=== PATIENT | female | born 1960 | race Hispanic/Latino ===

== ENCOUNTER 2017-09-27 07:31 | Inpatient (IN) | payer OTHER ==
[2017-09-27 07:34] VITALS: BMI 36.5
[2017-09-27] MEDS ORDERED: Lidocaine 5% Patch TD STA (07:50)
[2017-09-27] MEDS ORDERED: Morphine 5 MG/ML SYRINGE IVP STA (07:53)
[2017-09-27] MEDS ORDERED: HYDROmorphone 1 mg/ml ISec IVP STA ×2 (07:54→11:28)
--- NOTE | 2017-09-27 08:09 | ED PDOC ---
Arrival/HPI - General Chief Complaint: Back Pain Time Seen by Provider: 09/27/17 07:38 Historian: Family - History of Present Illness Narrative History of Present Illness (Text): 09/27/17 08:00 56 year old female, whose past medical history includes hypertension, hyperlipidemia, and kidney transplant, who presents to the emergency department complaining of lower back pain, mainly on the left side, due to her sciatica. Patient reports she came from a cruise and the pain began 1 day ago and got worse. Patient's family states 2 hours ago patient became nauseous and vomited. She also notes having frequency. Patient denies shortness of breath, fever, diarrhea, dysuria, hematuria, abdominal pain, or other complaints. No trauma. PMD: None Time/Duration: 24 hours Symptom Onset: Sudden Symptom Course: Unchanged, Worsening Past Medical History - Provider Review Nursing Documentation Reviewed: Yes - Travel History If Yes, travel location?: [place] - Cardiac Hx Cardiac Disorders: Yes Other/Comment: as per pt cardial infusion 3 years ago - Renal Hx Renal Disorder: Yes Other/Comment: kidney tranplant - Endocrine/Metabolic Hx Endocrine Disorders: No - Musculoskeletal/Rheumatological Hx Musculoskeletal Disorders: Yes Hx Back Pain: Yes - Gastrointestinal Hx Gastrointestinal Disorders: Yes Hx Gall Bladder Disease: Yes - Psychiatric Hx Substance Use: No - Surgical History Hx Kidney Transplant: Yes - Anesthesia Hx Anesthesia: Yes Hx Anesthesia Reactions: No Hx Malignant Hyperthermia: No Family/Social History - Physician Review Nursing Documentation Reviewed: Yes Family/Social History: Unknown Family HX Smoking Status: Never Smoked Hx Alcohol Use: Yes Frequency of alcohol use: Socially Hx Substance Use: No Allergies/Home Meds Allergies/Adverse Reactions: Allergies cephalexin Allergy (Severe, Verified 09/27/17 07:46) ITCHING ciprofloxacin [From Cipro] Allergy (Severe, Verified 09/27/17 07:45) RASH Home Medications: Home Meds Medication Instructions Recorded Confirmed Aspirin [Ecotrin] 81 mg PO DAILY 09/27/17 09/27/17 Atorvastatin [Lipitor] 20 mg PO DAILY 09/27/17 09/27/17 Calcitriol [Calcitriol] 0.25 mcg PO DAILY 09/27/17 09/27/17 FLUoxetine [Prozac] 20 mg PO DAILY 09/27/17 09/27/17 Magnesium Oxide [Mag-Ox] 400 mg PO BID 09/27/17 09/27/17 Mycophenolate Mofetil 250 mg PO BID 09/27/17 09/27/17 [Mycophenolate Mofetil] Prednisone [Jose Ramon] 5 mg PO DAILY 09/27/17 09/27/17 Sodium Bicarbonate Tab [Sodium 650 mg PO BID 09/27/17 09/27/17 Bicarbonate Tab] Tacrolimus [Prograf Cap] 1 mg PO BID 09/27/17 09/27/17 Temazepam [Restoril] 15 mg PO PRN PRN 09/27/17 09/27/17 predniSONE [predniSONE] 2.5 mg PO DAILY 09/27/17 09/27/17 Review of Systems - Review of Systems Constitutional: absent: Fevers ENT: absent: Sinus Congestion Respiratory: absent: SOB Cardiovascular: absent: Chest Pain Gastrointestinal: Nausea, Vomiting. absent: Abdominal Pain, Diarrhea Genitourinary Female: Frequency. absent: Dysuria, Hematuria Musculoskeletal: Back Pain (left lower back pain) Skin: absent: Rash Neurological: absent: Headache Endocrine: absent: Diaphoresis Physical Exam Vital Signs Reviewed: Yes Vital Signs Temp Pulse Resp BP Pulse Ox 09/27/17 12:16 98 F 79 19 111/66 95 09/27/17 10:01 98 F 85 18 111/65 98 09/27/17 07:59 98.3 F 84 18 133/71 98 Temperature: Afebrile Blood Pressure: Normal Pulse: Regular Respiratory Rate: Normal Appearance: Positive for: Well-Appearing, Non-Toxic Pain Distress: Mild Mental Status: Positive for: Alert and Oriented X 3 - Systems Exam Head: Present: Atraumatic, Normocephalic Extroacular Muscles: Present: EOMI Conjunctiva: Present: Normal Mouth: Present: Moist Mucous Membranes Respiratory/Chest: Present: Clear to Auscultation, Good Air Exchange. No: Respiratory Distress, Accessory Muscle Use, Wheezes, Rales, Retracting, Rhonchi Cardiovascular: Present: Regular Rate and Rhythm, Normal S1, S2. No: Murmurs Abdomen: Present: Normal Bowel Sounds. No: Tenderness, Distention, Peritoneal Signs, Rebound, Guarding Back: Present: Paraspinal Tenderness (left lower back lumbar tenderness), Pain with Leg Raise. No: CVA Tenderness Lower Extremity: Present: Normal Inspection, NORMAL PULSES, Normal ROM, Neurovascularly Intact, Capillary Refill < 2 s. No: Edema, Tenderness, Swelling , Erythema, Deformity Neurological: Present: GCS=15, CN II-XII Intact, Speech Normal Skin: Present: Warm, Dry, Normal Color. No: Rashes Psychiatric: Present: Alert, Oriented x 3, Normal Insight, Normal Concentration Medical Decision Making ED Course and Treatment: 09/27/17 Impression: 56 year old female with left lower back lumbar tenderness and pain with leg raise Differential Diagnosis included but are not limited to: Sciatica Plan: -- Labs -- Tylenol, Dilaudid, and Lidoderm -- Reassess and disposition -- Urinalysis Progress Notes: 09/27/17 09:48 Patient resting comfortably and states the pain has improved. Dexamethasone given for extra pain control. In the past she's received a medrol dose pack which has helped her. Patient creatinine elevated at 2.2 which she states is her baseline and even better then her typical creatinine. 09/27/17 12:48 I attempted to have patient up and walk. She initially could not sit up and after reevaluation she attempted to sit down and stand up. She was able to stand up but she fell back in the bed in pain. Considering she's had several treatments with pain medication and her pain persists she will be admitted for Intractable back pain. Clinically there is no evidence of cord compression. She has full strength, sensation intact. She has no incontinences. No numbness or weakness. - Lab Interpretations Lab Results: 09/27/17 08:00 09/27/17 08:00 Lab Results 09/27/17 08:00: Sodium 139, Potassium 4.0, Chloride 105, Carbon Dioxide 22, Anion Gap 16, BUN 66 H, Creatinine 2.2 H, Est GFR ( Amer) 28, Est GFR ( Non-Af Amer) 23, Random Glucose 153 H, Calcium 11.1 H 09/27/17 08:00: Urine Color Yellow, Urine Appearance Clear, Urine pH 6.0, Ur Specific [place] 1.020, Urine Protein Negative, Urine Glucose (UA) Negative, Urine Ketones Negative, Urine Blood Negative, Urine Nitrate Negative, Urine Bilirubin Negative, Urine Urobilinogen 0.2, Ur Leukocyte Esterase Trace H, Urine RBC Negative, Urine WBC 1 - 3, Ur Epithelial Cells 1 - 3, Urine Bacteria Few 09/27/17 08:00: WBC 10.2, RBC 3.02 L, Hgb 9.4 L, Hct 28.5 L, MCV 94.4, MCH 31.1 , MCHC 33.0, RDW 14.6 H, Plt Count 180, MPV 9.5, Gran % 82.9 H, Lymph % (Auto) 8.1 L, Moffat % (Auto) 7.9 H, Eos % (Auto) 1.0 L, Baso % (Auto) 0.1, Gran # 8.48 H , Lymph # (Auto) 0.8 L, Moffat # (Auto) 0.8 H, Eos # (Auto) 0.1, Baso # (Auto) 0.01 I have reviewed the lab results: Yes - Medication Orders Current Medication Orders: Aspirin (Ecotrin) 81 mg PO DAILY RADHA Atorvastatin Calcium (Lipitor) 20 mg PO DAILY RADHA Calcitriol (Rocaltrol) 0.25 mcg PO DAILY RADHA Fluoxetine HCl (Prozac) 20 mg PO DAILY RADHA Hydromorphone HCl (Dilaudid) 2 mg IVP Q3H PRN PRN Reason: Pain, moderate (4-7) Magnesium Oxide (Mag-Ox) 400 mg PO BID RADHA Mycophenolate Mofetil (Cellcept Cap) 250 mg PO BID RADHA Prednisone (Prednisone Tab) 5 mg PO DAILY RADHA Prednisone (Prednisone Tab) 2.5 mg PO DAILY RADHA Sodium Bicarbonate (Sodium Bicarbonate Tab) 650 mg PO BID RADHA Tacrolimus (Prograf Cap) 1 mg PO BID RADHA Zolpidem Tartrate (Ambien) 5 mg PO HS PRN PRN Reason: Insomnia Discontinued Medications Acetaminophen (Tylenol 325mg Tab) 975 mg PO STAT STA Stop: 09/27/17 07:51 Last Admin: 09/27/17 08:05 Dose: 975 mg MAR Pain/Vitals Document 09/27/17 08:05 VINCE (Rec: 09/27/17 08:05 VINCE [id number]) Pain Reassessment Is This A Pain ReAssessment? No Sleep Is patient sleeping during reassessment? No Presence of Pain Presence of Pain Yes Pain Scale Used Pain Scale Used Numeric Location Left, Right or Bilateral Left Upper or Lower Lower Pain Location Body Site Back Dexamethasone (Decadron Inj) 8 mg IVP STAT STA Stop: 09/27/17 09:16 Last Admin: 09/27/17 09:43 Dose: 8 mg IVP Administration Document 09/27/17 09:43 LA (Rec: 09/27/17 09:43 LA [id number]) Charges for Administration # of IVP Administrations 1 Hydromorphone HCl (Dilaudid) 1 mg IVP STAT STA Stop: 09/27/17 07:55 Last Admin: 09/27/17 08:05 Dose: 1 mg MAR Pain Assessment Document 09/27/17 08:05 LA (Rec: 09/27/17 08:06 LA [id number]) Pain Reassessment Is this a pain reassessment? No Sleep Is patient sleeping during reassessment? No Presence of Pain Presence of Pain Yes Pain Scale Used Pain Scale Used Numeric Location Left, Right or Bilateral Left IVP Administration Document 09/27/17 08:05 LA (Rec: 09/27/17 08:06 LA [id number]) Charges for Administration # of IVP Administrations 1 Hydromorphone HCl (Dilaudid) 1 mg IVP STAT STA Stop: 09/27/17 11:29 Last Admin: 09/27/17 11:40 Dose: 1 mg MAR Pain Assessment Document 09/27/17 11:40 LA (Rec: 09/27/17 11:41 LA [id number]) Pain Reassessment Is this a pain reassessment? Yes Sleep Is patient sleeping during reassessment? No Presence of Pain Presence of Pain Yes Pain Scale Used Pain Scale Used Numeric Location Left, Right or Bilateral Left Upper or Lower Lower Pain Location Body Site Back Description Description Constant Intensity of Pain at present 7 Pain Behavior Moaning Aggravating Factors Changing Position Alleviating Factors/Management Medication Techniques IVP Administration Document 09/27/17 11:40 LA (Rec: 09/27/17 11:41 LA [id number]) Charges for Administration # of IVP Administrations 1 Lidocaine (Lidoderm) 1 ea TD STAT STA Stop: 09/27/17 07:51 Last Admin: 09/27/17 08:05 Dose: 1 ea MAR Transdermal Patch Site Document 09/27/17 08:05 LA (Rec: 09/27/17 08:05 LA [id number]) Transdermal Patch Site Transdermal Patch Site Left Lower Back Non-Formulary Medication (Prednisone [Prednisone]) 2.5 mg PO DAILY RADHA Non-Formulary Medication (Temazepam [Restoril]) 15 mg PO PRN PRN PRN Reason: Sleep - Scribe Statement The provider has reviewed the documentation as recorded by the Scribe Carol Burger Provider Scribe Attestation: All medical record entries made by the Scribe were at my direction and personally dictated by me. I have reviewed the chart and agree that the record accurately reflects my personal performance of the history, physical exam, medical decision making, and the department course for this patient. I have also personally directed, reviewed, and agree with the discharge instructions and disposition. Disposition/Present on Arrival - Present on Arrival Any Indicators Present on Arrival: No History of DVT/PE: No History of Uncontrolled Diabetes: No Urinary Catheter: No History of Decub. Ulcer: No History Surgical Site Infection Following: None - Disposition Have Diagnosis and Disposition been Completed?: Yes Diagnosis: Intractable back pain Disposition: HOME/ ROUTINE Disposition Time: 12:48 Patient Plan: Observation Condition: FAIR
[2017-09-27 08:58] LABS: BASO # 0.01 K/mm3 (0.0-2.0); BASO % 0.1 % (0.0-3.0); EOS # 0.1 (0.0-0.7); GRAN # 8.48 (1.4-6.5); GRAN % 82.9 % (50.0-68.0); HEMOGLOBIN 9.4 g/dL (12.0-16.0); LYMPH # 0.8 (1.2-3.4); LYMPH % 8.1 % (22.0-35.0); MEAN CELL VOLUME 94.4 fl (80.0-105.0); MEAN CORPUSCULAR HEMOGLOBIN 31.1 pg (25.0-35.0); MEAN PLATELET VOLUME 9.5 fl (7.0-11.0); MONO # 0.8 (0.1-0.6); MONO % 7.9 % (1.0-6.0); RBC 3.02 10^6/uL (3.5-6.1); RED CELL DISTRIBUTION WIDTH 14.6 % (11.5-14.5); WHITE BLOOD COUNT 10.2 10^3/ul (4.5-11.0)
[2017-09-27 09:07] LABS: CALCIUM 11.1 mg/dL (8.4-10.5)
[2017-09-27] MEDS ORDERED: Dexamethasone 4 mg/1 ml IVP STA (09:15)
[2017-09-27 09:40] LABS: URINE BILIRUBIN NEGATIVE (NEGATIVE); URINE BLOOD NEGATIVE (NEGATIVE); URINE GLUCOSE (UA) NEGATIVE (NEGATIVE); URINE LEUKOCYTE ESTERASE TRACE Leu/uL (NEGATIVE); URINE PROTEIN NEGATIVE mg/dL (<30 mg/dL); URINE UROBILINOGEN 0.2 E.U./dL (<1 E.U./dL)
[2017-09-27 09:42] LABS: URINE APPEARANCE CLEAR (CLEAR); URINE COLOR YELLOW (YELLOW)
[2017-09-27 10:01] LABS: URINE BACTERIA FEW (NEG); URINE RBC NEGATIVE /hpf (0-2)
[2017-09-27] MEDS ORDERED: HYDROmorphone 2 mg/ml ISec IVP PRN (13:09)
--- NOTE | 2017-09-27 16:07 | CP.PCM.CON ---
History of Present Illness - History of Present Illness History of Present Illness: Initial Nephrology Consultation: Assessment: Stable acute back pain ESRD s/p DDRT 2014, now with ? pre-renal state Hypertensive Chronic Kidney Disease (I12.9) Chronic Kidney Disease (N18.4) Stage 4 with ? mg proteinuria (R80.9) Anemia (D64.9), Hypercalcemia hx of parathyroidectomy for Hyperparathyroidism (E21.1), HTN (I12.9) Obesity, hx of PCKD Plan No acute need for renal replacement therapy at this time. Hypertension control with meds as ordered. Patient not on ACEI/ARB. takes coreg 6.25 bid Monitor Input/Output, daily weights and renal function with basic metabolic panel due to hypercalcemia will hold calcitriol, lasix for 1 day and start on NS @ 100 ml/hr Immunosuppression; pt takes tacrolimus 2.5 mg bid and prednisone 7.5 mg daily, acyclovir bid continue with same pt says she had stopped mag ox and sodium bicarb tabs and not taking any more Dose meds/antibiotics for reduced GFR. Avoid fleets enema/magnesium based laxatives. 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 Will follow patient with you. Please call if any Qs. d/w team and Dr Yung Tellez Office: [phone] Chief Complaint; back pain HPI: Pt is a 56 F with hx of hypertension (years), PCKD s/p b/l tanana nephrectomy, ESRD s/p LURT [id number] (failed due to antibody rejection) then was on HD and received DDRT aug 2014 in [place], has baseline cr 1.8-2.5, here on cruise presented with complaints of acute low back pain and episode of nausea/vomitting today. also reports hx of parathyroidectomy and takes calcitriol for it Denies OTC/herbal meds or NSAIDs No recent iodinated contrast exposure. No obvious episodes of low BP. denies any episodes of rejection or opportunistic infections ROS: Cardiovascular: No chest pain. Pulmonary: No shortness of breath Gastrointestinal: denies abdominal pain c/o nausea. c/o vomiting. Genitourinary: No pain while urinating. Denies blood in urine. 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 obese Vitals reviewed and noted as below Head; Atraumatic, normocephalic ENT: no ulcers no thrush. Tongue is midline. Oropharynx: no rash or ulcers. EYES: Pupils are equal, round and reactive to light accommodation. Eye muscles and extraocular movement intact. Sclera is anicteric. Neck; supple no lymphadenopathy, no thyromegaly or bruit Lungs: Normal respiratory rate/effort. Breath sounds bilateral equal and clear Heart: Normal rate. s1s2 normal. No rub or gallop. Extremities: no edema. No varicose veins Neurological: Patient is alert, awake and oriented to person, place and time. No focal deficit. Strength bilateral appropriate and equal Skin: Warm and dry. Normal turgor. No rash. Palpitation: Normal elasticity for age Abdomen: Abdomen is soft. Bowel sounds +. There is no abdominal tenderness, no guarding/rigidity no organomegaly Psych: normal insight and normal affect/mood MSK: no joint tenderness or swelling. Digits and nails normal, no deformity : bladder not palpable. s/p allograft in RLQ and LLQ Labs/imaging reviewed. Past medical history, past surgical history, family history, social history, allergy reviewed and noted as below Family hx: no hx of CKD. Rest non-contributory Past Patient History - Past Social History Smoking Status: Never Smoked - CARDIAC Hx Cardiac Disorders: Yes Other/Comment: as per pt cardial infusion 3 years ago - RENAL Hx Chronic Kidney Disease: Yes Other/Comment: kidney tranplant - ENDOCRINE/METABOLIC Hx Endocrine Disorders: No - MUSCULOSKELETAL/RHEUMATOLOGICAL Hx Musculoskeletal Disorders: Yes Hx Back Pain: Yes - GASTROINTESTINAL Hx Gastrointestinal Disorders: Yes Hx Gall Bladder Disease: Yes - PSYCHIATRIC Hx Substance Use: No - SURGICAL HISTORY Hx Kidney Transplant: Yes - ANESTHESIA Hx Anesthesia: Yes Hx Anesthesia Reactions: No Hx Malignant Hyperthermia: No Meds Allergies/Adverse Reactions: Allergies Allergy/AdvReac Type Severity Reaction Status Date / Time cephalexin Allergy Severe ITCHING Verified 09/27/17 07:46 ciprofloxacin [From Cipro] Allergy Severe RASH Verified 09/27/17 07:45 - Medications Medications: Current Medications Aspirin (Ecotrin) 81 mg PO DAILY RADHA Atorvastatin Calcium (Lipitor) 20 mg PO DAILY RADHA Fluoxetine HCl (Prozac) 20 mg PO DAILY RAHDA Hydromorphone HCl (Dilaudid) 2 mg IVP Q3H PRN PRN Reason: Pain, moderate (4-7) Sodium Chloride (Sodium Chloride 0.9%) 1,000 mls @ 100 mls/hr IV .Q10H RADHA Stop: 09/28/17 15:46 Magnesium Oxide (Mag-Ox) 400 mg PO BID [facility] Prednisone (Prednisone Tab) 5 mg PO DAILY [facility] Prednisone (Prednisone Tab) 2.5 mg PO DAILY [facility] Tacrolimus (Prograf Cap) 2.5 mg PO BID RADHA Zolpidem Tartrate (Ambien) 5 mg PO HS PRN PRN Reason: Insomnia Results - Vital Signs Recent Vital Signs: Last Vital Signs Temp 97.7 F 09/27/17 14:00 Pulse 73 09/27/17 14:00 Resp 20 09/27/17 14:00 BP 128/69 09/27/17 14:00 Pulse Ox 99 09/27/17 14:00 - Labs Result Diagrams: 09/27/17 08:00 09/27/17 08:00
[2017-09-27] MEDS: Sodium Chloride 0.9% 1,000 ML IV SCH (17:32)
[2017-09-27] MEDS ORDERED: Magnesium Oxide 400 mg Tab UD PO SCH (18:00)
[2017-09-27] MEDS ORDERED: Pneumococcal 23-Valent Vaccine IM ONE (19:18)
[2017-09-27] MEDS ORDERED: Influenza Vaccine 60 mcg/0.5 mL SYR (4YR UP) IM ONE (19:18)
--- NOTE | 2017-09-27 19:31 | CON ---
DATE: 09/27/2017 NEUROLOGY CONSULTATION This is a 56-year-old woman. CHIEF COMPLAINT: Low back pain. 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 She has some low back spasms. She was given a dose of dexamethasone 8 mg x1 dose as well as Dilaudid in the ER. She seems mildly euphoric from the Dilaudid, but still has the back pain. We will send her down for an MRI of the lower lumbosacral spine stat to assess for any disc herniation. She is a little bit obese and overweight for her height. No focal weakness of the extremities. No problems with bowel and bladder. PAST MEDICAL HISTORY: History of hypertensive chronic kidney disease, polycystic kidney disease, status post renal transplant, hyperlipidemia, hypertension. REVIEW OF SYSTEMS: A 14-point review of systems negative except in the HPI. FAMILY HISTORY: Noncontributory. SOCIAL HISTORY: No illicit drug use, smoking or ETOH abuse. ALLERGIES: LABORATORY DATA: Sodium is 139, potassium 4, chloride 105, carbon dioxide 32, BUN of 66, creatinine 2.2. Random glucose of 153. PHYSICAL EXAMINATION: GENERAL: Patient is sitting up in bed, in some low back pain. VITAL SIGNS: Temperature 97.7, pulse rate 73, blood pressure 129/69, respiratory rate 20, oxygen saturation 99% on room air. HEENT: Head is atraumatic and normocephalic. PERRLA. Extraocular muscles are intact. NECK: Supple. No JVD. No adenopathy noted. LUNGS: Clear to auscultation. No adventitious sounds. HEART: S1 and S2, normal rate and rhythm. No murmurs, rubs or gallops. ABDOMEN: Soft, nontender and nondistended. Bowel sounds are present. EXTREMITIES: No clubbing. No cyanosis. Peripheral pulses 2+ felt bilaterally. NEUROLOGIC: Patient is alert, oriented to person, place, month and year. Speech is fluent without any errors. Cranial nerves II through XII are intact. Motor: Moves all extremities equally. No pronator drift seen. Sensory: Light touch, pinprick, proprioception, and vibration is intact. DTRs are 2+ throughout and 1 at both the ankles and knees. Coordination: [id number] is intact. No dysmetria noted. Gait is deferred for now. MUSCULOSKELETAL: Has lumbosacral spasms and musculoskeletal tightness. 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 Her lower lumbosacral pain is likely secondary to lumbosacral neuritis with underlying muscle spasm. At this time recommend 1. Tizanidine 4 mg p.o. t.i.d. 2. We will hold off the steroids since she was given dexamethasone mg x1 dose IV as well as Dilaudid. 3. Avoid overuse of Dilaudid. 4. Recommend also Lyrica 50 mg p.o. at bedtime for neuropathic relief. 5. Stat MRI of the lumbosacral spine to evaluate for disc herniation and PT and OT evaluation. If the MRI of the is negative for any disc herniation, then could be considered for follow up with her primary care and Neurology as an outpatient in [place]. Thank you for this consult. Héctor Moreno MD
--- NOTE | 2017-09-27 23:05 | HP ---
HISTORY OF PRESENT ILLNESS: I was called down to the emergency room today to see Ms. Valverde. She is [place] the cruise ship. She is having severe back pain. It began a day ago with left-sided sciatica. She has had it before. Now, she cannot stand or walk. She is crying in pain; it is severe; and we are admitting her for intractable back pain. She is from [place]. She was going to try and hit an airplane flight back from [place] to [place] today on first class, but she could not stand or walk and she tried numerous times. She is very upset that she is missing her flight. She is here with very severe low back pain from the cruise ship. PAST MEDICAL HISTORY: She has a past medical history of hypertension, high cholesterol, kidney transplant. She has gallbladder disease. She was traveling. She was in the [place]. Severe back pain history. FAMILY HISTORY: Unknown family history. Never smoked. SOCIAL HISTORY: She drinks alcohol socially. No substance abuse. ALLERGIES: SHE HAS ALLERGIES TO CEPHALEXIN AND CIPROFLOXACIN. MEDICATIONS: She takes multiple medications, Ecotrin, Lipitor, calcitriol, Prozac, magnesium oxide, mycophenolate, prednisone, sodium bicarb, Prograf, Restoril. REVIEW OF SYSTEMS: She is crying in a lot of pain. No acute vision changes or hearing changes. No sore throat or neck pain. No shortness of breath or cough. No chest pain or palpitations. She was nauseous and vomiting from the severe back pain. She states that she does that when she gets severe pain. No abdominal pain. No diarrhea or constipation. No problems urinating, but sometimes she gets increase in urination from the medication that she takes. She has severe back pain, left back pain, like left sciatica, severe. She cannot put weight on the left leg and if she moves the left leg, it really hurts her. No rashes or ulcers that she can tell. No headache. No tremors. No anxiety, depression. PHYSICAL EXAMINATION: VITAL SIGNS: She has a 98.6 temperature, 84 pulse, 18 respiratory rate, 130/71 blood pressure, 90% O2 sat on room air. GENERAL: She is not well appearing. She is very uncomfortable in lot of pain, but alert and oriented x3. HEENT: Head is atraumatic, normocephalic. Extraocular muscles are intact. Pupils equal, reactive to light, and accommodation. Throat is moist. NECK: Supple. HEART Regular rate. Normal S1, S2. LUNGS: Decreased breath sounds, but clear to auscultation. ABDOMEN: Soft, nontender. Positive bowel sounds. Morbidly obese. EXTREMITIES: There is trace edema. Left leg is severely tender to any kind of touching or even movement. It is very difficult for her to put any weight on it. She tried to stand, she almost collapsed. She is morbidly obese. NEUROLOGIC: GCS is 15. Cranial nerves II through XII grossly intact. Speech is normal. SKIN: Warm and dry. No apparent rashes or ulcers appreciated. PSYCHIATRIC: Alert and oriented x3. LYMPH NODES: Thyroid midline. No palpable appreciable lymphadenopathy. LABORATORY DATA: She had a bunch of tests. We have a 10.2 white count, 9.4 hemoglobin, 28.5 hematocrit, 180 platelets. We have a 139 sodium, potassium is 4, BUN is 66, creatinine 2.2, GFR is 23, sugar is 153, calcium is 11.1. Urine is clean. IMPRESSION AND PLAN: She has severe pain. She will be put in the hospital. She will be given Dilaudid. She will have an orthopedic evaluation, renal evaluation for the kidney function history. We will put her back on her medications, order physical therapy, and hopefully she will do very well. She is in observation for intractable severe back pain from the cruise ship. Mike Olguin DO
[2017-09-27] MEDS ORDERED: HYDROmorphone 1 mg/ml ISec IVP PRN (23:47)
--- NOTE | 2017-09-28 00:22 | CON ---
DATE: 09/27/2017 ORTHOPEDIC CONSULTATION LOCATION: Room 568, bed 2. HISTORY OF PRESENT ILLNESS: The patient came in complaining of acute low back pain for approximately 2 days. 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 The pain is localized to her back. I do not appreciate any straight leg raising. The reflex appears to be intact as well. She has tremendous low sacroiliac joint pain and some sciatic notch tenderness, but the straight leg go almost to 70 degrees without discomfort on both sides. I am going to get a Neurology consult if okay for Dr. Olguin to see if we have any underlying issues and will get an x-ray of her lumbar spine and pelvis, and CAT scan if they could do, just to see if we could find anything. I will hold off on the MRI until Dr. Moreno sees the patient, the neurologist. My feeling is that we will give a warm compresses and physical therapy to get her mobilized and do some back exercises. Because of her kidney disease, and she had a transplant, I will stay away from medications for now until the rn travel sees her too. FINAL DIAGNOSIS: Acute lumbosacral sprain, possible sciatica. PLAN: We will have her see her neurologist and get some x-ray imaging studies. Taj Marcos DO
[2017-09-28] MEDS: HYDROmorphone 1 mg/ml ISec IVP PRN ×3 (05:20→21:34)
[2017-09-28] MEDS: Sodium Chloride 0.9% 1,000 ML IV SCH ×3 (05:47→18:26)
[2017-09-28 07:18] LABS: HEMOGLOBIN 9.2 g/dL (12.0-16.0); MEAN CELL VOLUME 95.3 fl (80.0-105.0); MEAN CORPUSCULAR HEMOGLOBIN 30.6 pg (25.0-35.0); MEAN CORPUSCULAR HGB CONC 32.1 g/dl (31.0-37.0); MEAN PLATELET VOLUME 9.6 fl (7.0-11.0); RBC 3.01 10^6/uL (3.5-6.1); RED CELL DISTRIBUTION WIDTH 14.8 % (11.5-14.5); WHITE BLOOD COUNT 14.5 10^3/ul (4.5-11.0)
[2017-09-28 07:48] LABS: ALB/GLOB RATIO 1.2 (1.1-1.8); ALBUMIN 3.6 g/dL (3.0-4.8); CALCIUM 10.7 mg/dL (8.4-10.5)
--- NOTE | 2017-09-28 10:23 | CP.PCM.PN ---
Subjective - Date & Time of Evaluation Date of Evaluation: 09/28/17 Time of Evaluation: 10:22 - Subjective Subjective: Nephrology Consultation: Assessment: Stable acute back pain ESRD s/p DDRT 2014, now with ? pre-renal state Hypertensive Chronic Kidney Disease (I12.9) Chronic Kidney Disease (N18.4) Stage 4 with ? mg proteinuria (R80.9) Anemia (D64.9), Hypercalcemia hx of parathyroidectomy for Hyperparathyroidism (E21.1), HTN (I12.9) Obesity, hx of PCKD Plan No acute need for renal replacement therapy at this time. Hypertension control with meds as ordered. Patient not on ACEI/ARB. takes coreg 6.25 bid Monitor Input/Output, daily weights and renal function with basic metabolic panel due to hypercalcemia will hold calcitriol, lasix for 1 day and started on NS @ 100 ml/hr Immunosuppression; pt takes tacrolimus 2.5 mg bid and prednisone 7.5 mg daily, acyclovir bid continue with same pt says she had stopped mag ox and sodium bicarb tabs and not taking any more MRI spine results pending. Neuro following added lactulose fo constipation Dose meds/antibiotics for reduced GFR. Avoid fleets enema/magnesium based laxatives. 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 Will follow patient with you. Please call if any Qs. d/w team and Dr Yung Tellez Office: [phone] Chief Complaint; back pain HPI: Pt is a 56 F with hx of hypertension (years), PCKD s/p b/l [place]vel[place] nephrectomy, ESRD s/p LURT [id number] (failed due to antibody rejection) then was on HD and received DDRT aug 2014 in [place], has baseline cr 1.8-2.5, here on cruise presented with complaints of acute low back pain and episode of nausea/vomitting today. also reports hx of parathyroidectomy and takes calcitriol for it Denies OTC/herbal meds or NSAIDs No recent iodinated contrast exposure. No obvious episodes of low BP. denies any episodes of rejection or opportunistic infections ROS: Cardiovascular: No chest pain. Pulmonary: No shortness of breath Gastrointestinal: denies abdominal pain c/o nausea. c/o vomiting. c/o constipation Genitourinary: No pain or burning while urinating. Denies blood in urine. 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 obese Vitals reviewed and noted as below Head; Atraumatic, normocephalic ENT: no ulcers no thrush. Tongue is midline. Oropharynx: no rash or ulcers. EYES: Pupils are equal, round and reactive to light accommodation. Eye muscles and extraocular movement intact. Sclera is anicteric. Neck; supple no lymphadenopathy, no thyromegaly or bruit Lungs: Normal respiratory rate/effort. Breath sounds bilateral equal and clear Heart: Normal rate. s1s2 normal. No rub or gallop. Extremities: no edema. No varicose veins Neurological: Patient is alert, awake and oriented to person, place and time. No focal deficit. Strength bilateral appropriate and equal Skin: Warm and dry. Normal turgor. No rash. Palpitation: Normal elasticity for age Abdomen: Abdomen is soft. Bowel sounds +. There is no abdominal tenderness, no guarding/rigidity no organomegaly Psych: normal insight and normal affect/mood MSK: no joint tenderness or swelling. Digits and nails normal, no deformity : bladder not palpable. s/p allograft in RLQ and LLQ no tenderness Labs/imaging reviewed. Past medical history, past surgical history, family history, social history, allergy reviewed and noted as below Family hx: no hx of CKD. Rest non-contributory Objective - Vital Signs/Intake and Output Vital Signs (last 24 hours): Temp Pulse Resp BP Pulse Ox 97.9 F 70 18 120/64 92 L 09/28/17 06:00 09/28/17 06:00 09/28/17 06:00 09/28/17 06:00 09/28/17 06:00 Intake and Output: 09/28/17 09/28/17 06:59 18:59 Intake Total 220 Balance 220 - Medications Medications: Current Medications Acyclovir (Zovirax) 200 mg PO BID RADHA PRN Reason: Protocol Stop: 10/02/17 18:01 Last Admin: 09/27/17 21:57 Dose: Not Given Aspirin (Ecotrin) 81 mg PO DAILY [facility] Atorvastatin Calcium (Lipitor) 20 mg PO DAILY [facility] Carvedilol (Coreg) 6.25 mg PO BID [facility] Last Admin: 09/27/17 22:18 Dose: 6.25 mg Fluoxetine HCl (Prozac) 20 mg PO DAILY [facility] Hydromorphone HCl (Dilaudid) 2 mg IVP Q3H PRN PRN Reason: Pain, moderate (4-7) Last Admin: 09/28/17 05:20 Dose: 2 mg Sodium Chloride (Sodium Chloride 0.9%) 1,000 mls @ 100 mls/hr IV .Q10H [facility] Stop: 09/28/17 15:46 Last Admin: 09/28/17 05:47 Dose: 100 mls/hr Lactulose (Enulose) 20 gm PO ONCE ONE Stop: 09/28/17 10:31 Lactulose (Enulose) 10 gm PO BID PRN PRN Reason: Constipation Prednisone (Prednisone Tab) 5 mg PO DAILY [facility] Prednisone (Prednisone Tab) 2.5 mg PO DAILY [facility] Promethazine HCl (Phenergan Rectal Supp) 25 mg RC Q6 PRN PRN Reason: Nausea/Vomiting Tacrolimus (Prograf Cap) 2.5 mg PO 0600,1800 [facility] Last Admin: 09/28/17 05:31 Dose: 2.5 mg Tizanidine HCl (Zanaflex) 4 mg PO TID [facility] Last Admin: 09/27/17 17:50 Dose: 4 mg Zolpidem Tartrate (Ambien) 5 mg PO HS PRN PRN Reason: Insomnia - Labs Labs: 09/28/17 07:00 09/28/17 07:00
--- NOTE | 2017-09-28 11:59 | US ---
PROCEDURE: Ultrasound of the Kidneys HISTORY: left renal transplant sonogram, c/o nausea, pain COMPARISON: None available. TECHNIQUE: Sonogram of the kidneys. FINDINGS: RENAL TRANSPLANT: Measures: 6.9 x 7 x 11.1 cm. Normal in size, contour and echogenicity. No stone, solid mass lesion or hydronephrosis visualized. OTHER FINDINGS: None. IMPRESSION: Unremarkable renal transplant.
--- NOTE | 2017-09-28 13:23 | MRI ---
PROCEDURE: MR LUMBAR SPINE WITHOUT CONTRAST HISTORY: ls radiculopathy COMPARISON: None available. TECHNIQUE: Multiecho multiplanar sequences were performed through the lumbar spine without the use of intravenous contrast. FINDINGS: Normal lumbar lordosis. Vertebral body heights are preserved. Marrow signal unremarkable. Conus medullaris unremarkable at the level of T12-L1 Paraspinal soft tissues are unremarkable. T12-L1: No disc herniation, spinal canal stenosis or neural foraminal narrowing. L1-2: No disc herniation, spinal canal stenosis or neural foraminal narrowing. L2-3: No disc herniation, spinal canal stenosis or neural foraminal narrowing. L3-4: No disc herniation, spinal canal stenosis or neural foraminal narrowing. L4-5: Disc bulge with mild bilateral facet arthropathy. L5-S1: Disc bulge with thecal sac indentation and mild bilateral facet arthropathy. OTHER FINDINGS: None. IMPRESSION: L4-5 Disc bulge with mild bilateral facet arthropathy. L5-S1 Disc bulge with thecal sac indentation and mild bilateral facet arthropathy.
--- NOTE | 2017-09-28 14:00 | PN ---
DATE: 09/28/2017 NEUROLOGY FOLLOWUP CHIEF COMPLAINT: Followup for low back pain. SUBJECTIVE: The patient is seen and examined at bedside. The patient still has [id number] pain, though was given opiates overnight through IV and is on muscle relaxant. MRI of the lumbosacral spine shows an L4-L5 disk bulge with mild bilateral facet arthropathy in L5-S1, disk bulge with thecal sac indentation, mild bilateral facet arthropathy, but no central foraminal canal stenosis. No cord impingement. Paravertebral tissues are unremarkable. REVIEW OF SYSTEMS: A 14-point review of systems is negative except as per the HPI. PAST MEDICAL HISTORY: Hypertension, chronic kidney disease, polycystic kidney disease, status post renal transplant, hyperlipidemia, hypertension. FAMILY HISTORY: Noncontributory. SOCIAL HISTORY: No illicit drug use, smoking or ETOH abuse. ALLERGIES: SHE HAS ALLERGIES TO CEPHALEXIN, CIPROFLOXACIN AND ZOFRAN. MEDICATIONS: Reviewed by nurse reconciliation sheet. LABORATORY DATA: MRI of lumbosacral spine showed L4-L5, L5-S1 disk bulge with mild facet arthropathy. Sodium is 140, potassium 4.4, chloride 107, carbon dioxide 23, BUN of 61, creatinine 2.2, random glucose of 173. PHYSICAL EXAMINATION: GENERAL: The patient is sitting up in bed, in no acute distress. VITAL SIGNS: Reviewed. HEENT: Atraumatic, normocephalic. PERRLA. Extraocular muscles intact. NECK: Supple. No JVD. No adenopathy noted. LUNGS: Clear to auscultation. No adventitious sounds. HEART: S1, S2. Normal rate and rhythm. No murmurs, rubs or gallops. ABDOMEN: Soft, nontender and nondistended. Bowel sounds are present. EXTREMITIES: No clubbing. No cyanosis. Peripheral pulses 2+ felt bilaterally. NEUROLOGIC: The patient is alert and oriented to person, place, month and year. Speech is fluent without any errors. Cranial nerves II through XII intact. Motor exam: Moves all extremities equally. No pronator drift seen. Sensory exam: Light touch, pinprick, proprioception and vibration are intact. DTRs are 2+ throughout and 1 at both ankles and knees. Coordination: [id number] intact. No dysmetria noted. Gait is deferred for now. MUSCULOSKELETAL: She has no musculoskeletal spasm. No musculoskeletal tightness. ASSESSMENT AND PLAN: This is a 56-year-old with history of polycystic kidney disease, status post renal transplant, hypertension, chronic kidney disease, dyslipidemia and hypertension, who presented with low back pain radiating down to the left buttocks down to the left leg with paresthesias, aggravated by prolonged positions and came in after being on a cruise ship and started to have the worsening pain. Her lumbosacral pain is likely secondary to underlying transient lumbosacral neuritis with underlying muscle spasm. Her MRI of the lumbosacral spine did show L4-L5 and L5-S1 disk bulge with bilateral facet arthropathy, but no central or frontal stenosis. At this time, recommend, 1. Tizanidine 4 mg p.o. t.i.d. for muscle spasm. 2. Could consider Lyrica 50 mg p.o. b.i.d. for neuropathic relief. 3. Outpatient Physical Therapy and Occupational Therapy evaluation. She is clinically stable to follow up with her neurologist, Dr. Roca. Thanks for this consult. Héctor Moreno MD
--- NOTE | 2017-09-28 14:31 | PN ---
DATE: SUBJECTIVE: She came from a cruise ship. She is from [place]. She came out the cruise ship in severe low back pain. She cannot walk. The only reason why she is talking to me, looking better on the bed today. She transcribes for all the medicine she is on. She is on Ambien, Coreg, Decadron, Dilaudid, Dulcolax, Ecotrin, Enulose, Lidoderm, Lipitor, Pepcid, prednisone, Prograf, Prozac, IV fluids, Tylenol, Zanaflex and Zovirax. She is eating okay, little uncomfortable with all the pain meds, but still try to stand for maybe a minute, had to sit back down, but better than yesterday. PHYSICAL EXAMINATION: VITAL SIGNS: 97.9 temp, 70 pulse, 120/65 blood pressure, 80 respiratory rate, 90% O2 sat on room air. HEENT: Head is atraumatic, normocephalic. HEART: Regular rate. LUNGS: Clear to auscultation. ABDOMEN: Soft, morbidly obese. EXTREMITIES: No edema. LABORATORY DATA: She has a 140 sodium, potassium 4.4, BUN 61, creatinine 2.2, GFR is 23, sugar is 173. She is on steroids. Calcium is 10.7. Total bili is 0.4, AST is 17, ALT is 19, alk phos is 54, total protein is 6.7. Urine is clean. White count is 14.5, , 9.2 hemoglobin, 28.7 hematocrit, 172 platelets. The MRI of the lower back is pending. She had a renal ultrasound. She has also been seen by Orthopedics. Unremarkable renal transplant. We will check her labs tomorrow. Pain meds, physical therapy to get out of bed to chair. Mike Olguin DO MTDD
[2017-09-28] MEDS ORDERED: Bisacodyl 5mg EC Tab PO PRN (18:00)
[2017-09-29] MEDS: HYDROmorphone 1 mg/ml ISec IVP PRN ×2 (03:43→08:42)
[2017-09-29] MEDS: Sodium Chloride 0.9% 1,000 ML IV SCH ×3 (06:21→09:59)
[2017-09-29 07:38] LABS: HEMOGLOBIN 9.2 g/dL (12.0-16.0); MEAN CELL VOLUME 97.3 fl (80.0-105.0); MEAN CORPUSCULAR HGB CONC 31.8 g/dl (31.0-37.0); MEAN PLATELET VOLUME 9.4 fl (7.0-11.0); RBC 2.97 10^6/uL (3.5-6.1); RED CELL DISTRIBUTION WIDTH 15.1 % (11.5-14.5); WHITE BLOOD COUNT 11.4 10^3/ul (4.5-11.0)
[2017-09-29 08:26] LABS: ALB/GLOB RATIO 1.1 (1.1-1.8); ALBUMIN 3.5 g/dL (3.0-4.8); CALCIUM 10.1 mg/dL (8.4-10.5)
[2017-09-29] MEDS ORDERED: Enoxaparin 40 mg Syringe SC ONE (09:30)
[2017-09-29] MEDS ORDERED: Enoxaparin 30 mg Syringe SC SCH (10:00)
[2017-09-29] MEDS ORDERED: HYDROmorphone 0.5 mg/0.5 ml ISec IVP PRN (10:19)
[2017-09-29] MEDS: Oxycodone/Acetaminophen 5/325 mg Tab PO PRN ×2 (11:38→20:04)
--- NOTE | 2017-09-29 15:19 | PN ---
DATE: 09/29/2017 LOCATION: Room 568, bed 2. She is still complaining of back pain. MRI just showed bulging disk in the lower lumbar spine and no reason for any surgical intervention. I explained to her the importance of getting up out of bed to minimize the chance of phlebitis or deep vein thrombosis and we are going to put her on the sequential compression stockings. She is already on aspirin. Since she is not out of bed, I am going to be compelled to give her more of blood thinner to minimize deep vein thrombosis, so I will probably put her on Lovenox 40 mg a day because she is extremely overweight and I have encouraged therapy for up out of bed in ambulation and I believe she will probably get a venous Doppler to make sure she does not have deep vein thrombosis developing in either of her legs, even though she has more paresthesias she said on the left leg than the right. Still there is no significant straight leg raising signs per pain and Dr. Moreno saw the patient also and there is a feeling that she just needs medication for muscle spasms and neuropathy kind of medications and outpatient therapy and to follow up with a neurologist in [place], but we got to get her moving a little better to minimize side effects of too much bed rest which, in her case, is deep vein thrombosis. Taj Marcos DO
--- NOTE | 2017-09-29 15:49 | PN ---
DATE: SUBJECTIVE: I saw her with the Renal doctor. She is sitting in bed. She is barely comfortable. She is not walking much, except she is on Dilaudid. Her kidneys are staying stable and might have stopped the IV fluid. I will give her some Percocet to see if we get her off the Dilaudid. When she is on Percocet, we can get her back to her home stay. PHYSICAL EXAMINATION VITAL SIGNS: A 98.3 temperature, 69 pulse, 114/61 blood pressure, 20 respiratory rate, 94% O2 saturation on room air. HEENT: Head is atraumatic, normocephalic. HEART: Regular rate. LUNGS: Decreased breath sounds, but clear. ABDOMEN: Soft. Morbidly obese. EXTREMITIES: No edema. MEDICATIONS: She is currently taking Ambien; Coreg; Dilaudid; Dulcolax; Ecotrin; Enulose; Lipitor; Pepcid; Percocet were just added; Phenergan; prednisone and prednisone at 2.5 mg; Prograf; Prozac; IV fluids, which I think the kidney doctor will discontinue; Zanaflex; and Zovirax. LABORATORY DATA: She has a 11.4 white count, steroids, 9.2 hemoglobin, 28.9 hematocrit with a 179,000 platelets. Sodium 137; potassium of 4.7; BUN 65; creatinine 2.4, she is on her baseline; 21 GFR; sugar is 154 from the steroids; calcium is 7.1, better; total bilirubin is 0.4; AST is 17; ALT is 21; alkaline phosphatase 65; total protein is 6.6. She is being seen by Neurology and Renal, and hopefully, in the next 24 hours, we will get her off the IV pain medicines, p.o. pain medicines, and let her go back to her home stay. She has intractable low back pain. Mike Olguin DO MTDD
--- NOTE | 2017-09-29 17:34 | CP.PCM.PN ---
Subjective - Date & Time of Evaluation Date of Evaluation: 09/29/17 Time of Evaluation: 17:33 - Subjective Subjective: Nephrology Consultation: Assessment: Stable acute back pain with sciatica ESRD s/p DDRT 2014 Hypertensive Chronic Kidney Disease (I12.9) Chronic Kidney Disease (N18.4) Stage 4 with ? mg proteinuria (R80.9) Anemia (D64.9), Hypercalcemia hx of parathyroidectomy for Hyperparathyroidism (E21.1), HTN (I12.9) Obesity, hx of PCKD Plan No acute need for renal replacement therapy at this time. Hypertension control with meds as ordered. Patient not on ACEI/ARB. takes coreg 6.25 bid Monitor Input/Output, daily weights and renal function with basic metabolic panel due to hypercalcemia will hold calcitriol, lasix for 1 day (resume at d/c). d/c IVF Immunosuppression; pt takes tacrolimus 2.5 mg bid and prednisone 7.5 mg daily, acyclovir bid continue with same pt says she had stopped mag ox and sodium bicarb tabs and not taking any more Neuro following added lactulose fo constipation Dose meds/antibiotics for reduced GFR. Avoid fleets enema/magnesium based laxatives. 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 Will follow patient with you. Please call if any Qs. d/w team and Dr Yung Tellez Office: [phone] Chief Complaint; back pain HPI: Pt is a 56 F with hx of hypertension (years), PCKD s/p b/l [place] nephrectomy, ESRD s/p LURT [id number] (failed due to antibody rejection) then was on HD and received DDRT aug 2014 in [place], has baseline cr 1.8-2.5, here on cruise presented with complaints of acute low back pain and episode of nausea/vomitting today. also reports hx of parathyroidectomy and takes calcitriol for it Denies OTC/herbal meds or NSAIDs No recent iodinated contrast exposure. No obvious episodes of low BP. denies any episodes of rejection or opportunistic infections ROS: Cardiovascular: No chest pain. Pulmonary: No shortness of breath Gastrointestinal: denies abdominal pain c/o nausea. c/o vomiting. c/o constipation Genitourinary: No pain or burning while urinating. Denies blood in urine. All other negative except left gluteal/back pain radiating to left thigh Physical Examination: General Appearance: comfortable, in no acute respiratory distress, co-operative . obese Vitals reviewed and noted as below Head; Atraumatic, normocephalic ENT: no ulcers no thrush. Tongue is midline. Oropharynx: no rash or ulcers. EYES: Pupils are equal, round and reactive to light accommodation. Eye muscles and extraocular movement intact. Sclera is anicteric. Neck; supple no lymphadenopathy, no thyromegaly or bruit Lungs: Normal respiratory rate/effort. Breath sounds bilateral equal and clear Heart: Normal rate. s1s2 normal. No rub or gallop. Extremities: no edema. No varicose veins Neurological: Patient is alert, awake and oriented to person, place and time. No focal deficit. Strength bilateral appropriate and equal Skin: Warm and dry. Normal turgor. No rash. Palpitation: Normal elasticity for age Abdomen: Abdomen is soft. Bowel sounds +. There is no abdominal tenderness, no guarding/rigidity no organomegaly Psych: normal insight and normal affect/mood MSK: no joint tenderness or swelling. Digits and nails normal, no deformity : bladder not palpable. s/p allograft in RLQ and LLQ no tenderness Labs/imaging reviewed. Past medical history, past surgical history, family history, social history, allergy reviewed and noted as below Family hx: no hx of CKD. Rest non-contributory sono WNL. urine cx neg Objective - Vital Signs/Intake and Output Vital Signs (last 24 hours): Temp Pulse Resp BP Pulse Ox 97.9 F 65 20 120/71 98 09/29/17 16:24 09/29/17 17:23 09/29/17 16:24 09/29/17 17:23 09/29/17 16:24 Intake and Output: 09/29/17 09/29/17 06:59 18:59 Intake Total 580 Output Total 3 Balance 577 - Medications Medications: Current Medications Acyclovir (Zovirax) 400 mg PO BID RADHA PRN Reason: Protocol Last Admin: 09/29/17 17:24 Dose: 400 mg Aspirin (Ecotrin) 81 mg PO DAILY [facility] Last Admin: 09/29/17 09:57 Dose: 81 mg Atorvastatin Calcium (Lipitor) 20 mg PO DAILY [facility] Last Admin: 09/29/17 09:57 Dose: 20 mg Bisacodyl (Dulcolax) 10 mg PO HS PRN PRN Reason: Constipation Carvedilol (Coreg) 6.25 mg PO BID [facility] Last Admin: 09/29/17 17:23 Dose: 6.25 mg Famotidine (Pepcid) 20 mg PO 1000,2200 [facility] Last Admin: 09/29/17 14:15 Dose: 20 mg Fluoxetine HCl (Prozac) 20 mg PO DAILY [facility] Last Admin: 09/29/17 09:58 Dose: 20 mg Hydromorphone HCl (Dilaudid) 2 mg IVP Q3H PRN PRN Reason: Pain, severe (8-10) Lactulose (Enulose) 10 gm PO BID PRN PRN Reason: Constipation Last Admin: 09/29/17 11:37 Dose: 10 gm Oxycodone/Acetaminophen (Percocet 5/325 Mg Tab) 1 tab PO Q6H PRN PRN Reason: Pain, moderate (4-7) Stop: 10/02/17 10:19 Last Admin: 09/29/17 11:38 Dose: 1 tab Prednisone (Prednisone Tab) 5 mg PO DAILY [facility] Last Admin: 09/29/17 09:58 Dose: 5 mg Prednisone (Prednisone Tab) 2.5 mg PO DAILY [facility] Last Admin: 09/29/17 09:58 Dose: 2.5 mg Promethazine HCl (Phenergan Rectal Supp) 25 mg RC Q6 PRN PRN Reason: Nausea/Vomiting Tacrolimus (Prograf Cap) 2.5 mg PO 0600,1800 [facility] Last Admin: 09/29/17 17:23 Dose: 2.5 mg Tizanidine HCl (Zanaflex) 4 mg PO TID [facility] Last Admin: 09/29/17 17:27 Dose: 4 mg Zolpidem Tartrate (Ambien) 5 mg PO HS PRN PRN Reason: Insomnia
--- NOTE | 2017-09-29 19:26 | US ---
HISTORY: Leg pain and swelling. Evaluate for DVT PHYSICIAN(S): Poncho Bar MD. TECHNIQUE: Duplex sonography and color-flow Doppler with graded compression were used to evaluate the deep venous systems of both lower extremities. The exam is limited by edema. FINDINGS: The visualized deep venous systems of both lower extremities are sonographically normal and compressible. Normal wave forms and augmentation are seen. There is no sonographic evidence for deep venous thrombosis in the visualized segments of both lower extremities. IMPRESSION: No sonographic evidence for deep venous thrombosis in the visualized segments of both lower extremities.
[2017-09-30] MEDS: Oxycodone/Acetaminophen 5/325 mg Tab PO PRN ×2 (01:00→19:25)
[2017-09-30] MEDS: HYDROmorphone 1 mg/ml ISec IVP PRN ×4 (06:08→17:48)
[2017-09-30 07:27] LABS: HEMOGLOBIN 9.3 g/dL (12.0-16.0); MEAN CELL VOLUME 96.4 fl (80.0-105.0); MEAN CORPUSCULAR HEMOGLOBIN 30.8 pg (25.0-35.0); MEAN PLATELET VOLUME 9.5 fl (7.0-11.0); RBC 3.02 10^6/uL (3.5-6.1); RED CELL DISTRIBUTION WIDTH 14.8 % (11.5-14.5); WHITE BLOOD COUNT 9.5 10^3/ul (4.5-11.0)
[2017-09-30 07:52] LABS: ALBUMIN 3.5 g/dL (3.0-4.8); CALCIUM 9.8 mg/dL (8.4-10.5)
[2017-09-30] MEDS ORDERED: Sodium Chloride 0.45% 1,000 ML IV SCH (08:45)
[2017-09-30] MEDS: Sodium Chloride 0.9% 1,000 ML IV SCH (13:19)
--- NOTE | 2017-09-30 14:30 | PN ---
DATE: SUBJECTIVE: She is not doing well this morning. She had a right low back pain. She is on Ambien, Coreg, Dilaudid, Dulcolax, Ecotrin, Enulose, Lipitor, Lovenox, Pepcid, Percocet, prednisone, Prograf, Prozac, Zanaflex, Zovirax. PHYSICAL EXAMINATION VITAL SIGNS: She has a 98.4 temperature, 65 pulse, 112/63 blood pressure, 20 respiratory rate, 95% O2 saturation on room air. HEENT: Head is atraumatic, normocephalic. HEART: Regular rate. LUNGS: Decreased breath sounds, but clear. ABDOMEN: Soft, morbidly obese. EXTREMITIES: No edema. Severe pain in the low back. LABORATORY DATA: Sodium 138, potassium 4.5. BUN 72, creatinine 3.6, Renal is on the case. is up a little bit. GFR is 19. Sugar is 128. Calcium is 9.8, total bilirubin is 0.4, AST is 22, ALT is 28, alkaline phosphatase is Total protein is 6.8. White count is 9.5, better. Hemoglobin is 9.3, hematocrit is 29.1, platelets of 202,000. She is in severe pain, cannot walk. She is on multiple medications, multiple pain medications, multiple consults. We will try to get her well enough that she can take her wheelchair to the airport and get home. shot discussed with Orthopedics into the back, maybe Marcaine and steroids. Mike Olguin DO MTDD
--- NOTE | 2017-09-30 14:59 | CP.PCM.PN ---
Subjective - Date & Time of Evaluation Date of Evaluation: 09/30/17 Time of Evaluation: 14:55 - Subjective Subjective: Nephrology Consultation: Assessment: Stable acute back pain with sciatica ESRD s/p DDRT 2014 Hypertensive Chronic Kidney Disease (I12.9) Chronic Kidney Disease (N18.4) Stage 4 with ? mg proteinuria (R80.9) Anemia (D64.9), Hypercalcemia hx of parathyroidectomy for Hyperparathyroidism (E21.1), HTN (I12.9) Obesity, hx of PCKD Plan No acute need for renal replacement therapy at this time. Hypertension control with meds as ordered. Patient not on ACEI/ARB. takes coreg 6.25 bid Monitor Input/Output, daily weights and renal function with basic metabolic panel due to hypercalcemia will hold calcitriol, lasix for 1 day (resume at d/c). IVF 1L NS today Immunosuppression; pt takes tacrolimus 2.5 mg bid and prednisone 7.5 mg daily, acyclovir bid continue with same pt says she had stopped mag ox and sodium bicarb tabs and not taking any more Neuro following added lactulose for constipation check tacrolimus level in AM Dose meds/antibiotics for reduced GFR. Avoid fleets enema/magnesium based laxatives. 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 Will follow patient with you. Please call if any Qs. d/w team and Dr Yung Tellez Office: [phone] Chief Complaint; back pain HPI: Pt is a 56 F with hx of hypertension (years), PCKD s/p b/l [place] nephrectomy, ESRD s/p LURT 7780-0965 (failed due to antibody rejection) then was on HD and received DDRT Aug 2014 in [place], has baseline cr 1.8-2.5, [place] presented with complaints of acute low back pain and episode of nausea/vomitting today. also reports hx of parathyroidectomy and takes calcitriol for it Denies OTC/herbal meds or NSAIDs No recent iodinated contrast exposure. No obvious episodes of low BP. denies any episodes of rejection or opportunistic infections ROS: Cardiovascular: No chest pain. Pulmonary: No shortness of breath Gastrointestinal: denies abdominal pain no nausea. no vomiting. c/o constipation Genitourinary: No pain or burning while urinating. Denies blood in urine. All other negative except left gluteal/back pain radiating to left thigh Physical Examination: General Appearance: comfortable, in no acute respiratory distress, co-operative . obese Vitals reviewed and noted as below Head; Atraumatic, normocephalic ENT: no ulcers no thrush. Tongue is midline. Oropharynx: no rash or ulcers. EYES: Pupils are equal, round and reactive to light accommodation. Eye muscles and extraocular movement intact. Sclera is anicteric. Neck; supple no lymphadenopathy, no thyromegaly or bruit Lungs: Normal respiratory rate/effort. Breath sounds bilateral equal and clear Heart: Normal rate. s1s2 normal. No rub or gallop. Extremities: no edema. No varicose veins Neurological: Patient is sleepy today after pain meds Skin: Warm and dry. Normal turgor. No rash. Palpitation: Normal elasticity for age Abdomen: Abdomen is soft. Bowel sounds +. There is no abdominal tenderness, no guarding/rigidity no organomegaly Psych: normal insight and normal affect/mood MSK: no joint tenderness or swelling. Digits and nails normal, no deformity : bladder not palpable. s/p allograft in RLQ and LLQ no tenderness Labs/imaging reviewed. Past medical history, past surgical history, family history, social history, allergy reviewed and noted as below Family hx: no hx of CKD. Rest non-contributory sono WNL. urine cx neg Objective - Vital Signs/Intake and Output Vital Signs (last 24 hours): Temp Pulse Resp BP Pulse Ox 98.4 F 65 20 112/63 94 L 09/30/17 07:35 09/30/17 09:33 09/30/17 07:35 09/30/17 09:33 09/30/17 07:35 Intake and Output: 09/30/17 09/30/17 06:59 18:59 Intake Total 1020 Output Total 350 Balance 670 - Medications Medications: Current Medications Acyclovir (Zovirax) 400 mg PO BID [facility] PRN Reason: Protocol Last Admin: 09/30/17 09:32 Dose: 400 mg Aspirin (Ecotrin) 81 mg PO DAILY [facility] Last Admin: 09/30/17 09:32 Dose: 81 mg Atorvastatin Calcium (Lipitor) 20 mg PO DAILY [facility] Last Admin: 09/30/17 09:32 Dose: 20 mg Bisacodyl (Dulcolax) 10 mg PO HS PRN PRN Reason: Constipation Carvedilol (Coreg) 6.25 mg PO BID [facility] Last Admin: 09/30/17 09:33 Dose: 6.25 mg Famotidine (Pepcid) 20 mg PO 2200 [facility] Fluoxetine HCl (Prozac) 20 mg PO DAILY [facility] Last Admin: 09/30/17 09:33 Dose: 20 mg Hydromorphone HCl (Dilaudid) 2 mg IVP Q3H PRN PRN Reason: Pain, severe (8-10) Last Admin: 09/30/17 13:18 Dose: 2 mg Sodium Chloride (Sodium Chloride 0.9%) 1,000 mls @ 100 mls/hr IV .Q10H [facility] Stop: 09/30/17 20:16 Last Admin: 09/30/17 13:19 Dose: 100 mls/hr Lactulose (Enulose) 10 gm PO BID PRN PRN Reason: Constipation Last Admin: 09/29/17 20:04 Dose: 10 gm Oxycodone/Acetaminophen (Percocet 5/325 Mg Tab) 1 tab PO Q6H PRN PRN Reason: Pain, moderate (4-7) Stop: 10/02/17 10:19 Last Admin: 09/30/17 01:00 Dose: 1 tab Prednisone (Prednisone Tab) 5 mg PO DAILY [facility] Last Admin: 09/30/17 09:33 Dose: 5 mg Prednisone (Prednisone Tab) 2.5 mg PO DAILY [facility] Last Admin: 09/30/17 09:33 Dose: 2.5 mg Promethazine HCl (Phenergan Rectal Supp) 25 mg RC Q6 PRN PRN Reason: Nausea/Vomiting Tacrolimus (Prograf Cap) 2.5 mg PO 0600,1800 [facility] Last Admin: 09/30/17 06:04 Dose: 2.5 mg Tizanidine HCl (Zanaflex) 4 mg PO TID [facility] Last Admin: 09/30/17 13:18 Dose: 4 mg Zolpidem Tartrate (Ambien) 5 mg PO HS PRN PRN Reason: Insomnia - Labs Labs: 09/30/17 06:40 09/30/17 06:40
[2017-09-30] MEDS ORDERED: Naloxone 0.4 mg/ml Inj (Adult) IVP ONE (18:41)
[2017-09-30] MEDS ORDERED: HYDROmorphone 1 mg/ml ISec IVP PRN (19:24)
[2017-10-01] MEDS: Oxycodone/Acetaminophen 5/325 mg Tab PO PRN ×3 (03:28→19:10)
[2017-10-01] MEDS: Sodium Chloride 0.9% 1,000 ML IV SCH (06:10)
[2017-10-01 06:24] LABS: HEMOGLOBIN 9.5 g/dL (12.0-16.0); MEAN CELL VOLUME 96.7 fl (80.0-105.0); MEAN CORPUSCULAR HEMOGLOBIN 30.9 pg (25.0-35.0); MEAN PLATELET VOLUME 9.4 fl (7.0-11.0); RBC 3.07 10^6/uL (3.5-6.1); RED CELL DISTRIBUTION WIDTH 14.9 % (11.5-14.5); WHITE BLOOD COUNT 8.3 10^3/ul (4.5-11.0)
[2017-10-01 06:45] LABS: ALBUMIN 3.2 g/dL (3.0-4.8); CALCIUM 9.4 mg/dL (8.4-10.5)
--- NOTE | 2017-10-01 13:57 | CP.PCM.PN ---
Subjective - Date & Time of Evaluation Date of Evaluation: 10/01/17 Time of Evaluation: 13:54 - Subjective Subjective: Nephrology Consultation Note: Assessment: Stable acute back pain with sciatica ESRD s/p DDRT 2014 Hypertensive Chronic Kidney Disease (I12.9) Chronic Kidney Disease (N18.4) Stage 4 with ? mg proteinuria (R80.9) Anemia (D64.9), Hypercalcemia hx of parathyroidectomy for Hyperparathyroidism (E21.1), HTN (I12.9) Obesity, hx of PCKD Plan No acute need for renal replacement therapy at this time. Hypertension control with meds as ordered. Patient not on ACEI/ARB. takes coreg 6.25 bid Monitor Input/Output, daily weights and renal function with basic metabolic panel due to hypercalcemia held calcitriol, lasix for 1 day (resume at d/c). IVF as NS @ 30 mL per hour today. DC IV fluid once oral intake good Immunosuppression; pt takes tacrolimus 2.5 mg bid and prednisone 7.5 mg daily, acyclovir bid; continue with same pt says she had stopped mag ox. Resume sodium bicarb tabs As serum bicarbonate level low Neuro following added lactulose for constipation tacrolimus level in AM Sent No contraindication from renal perspective to use higher doses of steroids. Dose meds/antibiotics for reduced GFR. Avoid fleets enema/magnesium based laxatives. 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 Will follow patient with you. Please call if any Qs. d/w team and Dr Yung Tellez Office: [phone] Chief Complaint; back pain HPI: Pt is a 56 F with hx of hypertension (years), PCKD s/p b/l [place] nephrectomy, ESRD s/p LURT 2106-4604 (failed due to antibody rejection) then was on HD and received DDRT Aug 2014 in [place], has baseline cr 1.8-2.5, [place] on [place] presented with complaints of acute low back pain and episode of nausea/vomitting today. also reports hx of parathyroidectomy and takes calcitriol for it Denies OTC/herbal meds or NSAIDs No recent iodinated contrast exposure. No obvious episodes of low BP. denies any episodes of rejection or opportunistic infections ROS: Cardiovascular: No chest pain. Pulmonary: No shortness of breath Gastrointestinal: denies abdominal pain no nausea. no vomiting. Genitourinary: No pain or burning while urinating. Denies blood in urine. All other negative except left gluteal/back pain radiating to left thigh. Required Narcan on night of 09/30/17 Physical Examination: General Appearance: comfortable, in no acute respiratory distress, co-operative . obese Vitals reviewed and noted as below Head; Atraumatic, normocephalic ENT: no ulcers no thrush. Tongue is midline. Oropharynx: no rash or ulcers. EYES: Pupils are equal, round and reactive to light accommodation. Eye muscles and extraocular movement intact. Sclera is anicteric. Neck; supple no lymphadenopathy, no thyromegaly or bruit Lungs: Normal respiratory rate/effort. Breath sounds bilateral equal and clear Heart: Normal rate. s1s2 normal. No rub or gallop. Extremities: no edema. No varicose veins Neurological: Patient is sleepy today Although better than yesterday Skin: Warm and dry. Normal turgor. No rash. Palpitation: Normal elasticity for age Abdomen: Abdomen is soft. Bowel sounds +. There is no abdominal tenderness, no guarding/rigidity no organomegaly Psych: normal insight and normal affect/mood MSK: no joint tenderness or swelling. Digits and nails normal, no deformity : bladder not palpable. s/p allograft in RLQ and LLQ no tenderness Labs/imaging reviewed. Past medical history, past surgical history, family history, social history, allergy reviewed and noted as below Family hx: no hx of CKD. Rest non-contributory sono WNL. urine cx neg Objective - Vital Signs/Intake and Output Vital Signs (last 24 hours): Temp Pulse Resp BP Pulse Ox 97.6 F 66 20 136/73 95 10/01/17 07:35 10/01/17 09:31 10/01/17 07:35 10/01/17 09:31 10/01/17 07:35 Intake and Output: 10/01/17 10/01/17 06:59 18:59 Intake Total 120 Balance 120 - Medications Medications: Current Medications Acyclovir (Zovirax) 400 mg PO BID [facility] PRN Reason: Protocol Last Admin: 10/01/17 09:29 Dose: 400 mg Aspirin (Ecotrin) 81 mg PO DAILY [facility] Last Admin: 09/30/17 09:32 Dose: 81 mg Atorvastatin Calcium (Lipitor) 20 mg PO DAILY [facility] Last Admin: 10/01/17 09:30 Dose: 20 mg Bisacodyl (Dulcolax) 10 mg PO HS PRN PRN Reason: Constipation Carvedilol (Coreg) 6.25 mg PO BID [facility] Last Admin: 10/01/17 09:31 Dose: 6.25 mg Famotidine (Pepcid) 20 mg PO 2200 [facility] Fluoxetine HCl (Prozac) 20 mg PO DAILY [facility] Last Admin: 10/01/17 09:30 Dose: 20 mg Hydromorphone HCl (Dilaudid) 1 mg IVP Q4H PRN PRN Reason: Pain, severe (8-10) Sodium Chloride (Sodium Chloride 0.9%) 1,000 mls @ 30 mls/hr IV .Q24H [facility] Lactulose (Enulose) 10 gm PO BID PRN PRN Reason: Constipation Last Admin: 09/29/17 20:04 Dose: 10 gm Oxycodone/Acetaminophen (Percocet 5/325 Mg Tab) 1 tab PO Q6H PRN PRN Reason: Pain, moderate (4-7) Stop: 10/02/17 10:19 Last Admin: 10/01/17 09:30 Dose: 1 tab Prednisone (Prednisone Tab) 50 mg PO DAILY [facility] Last Admin: 10/01/17 09:33 Dose: 50 mg Promethazine HCl (Phenergan Rectal Supp) 25 mg RC Q6 PRN PRN Reason: Nausea/Vomiting Sodium Bicarbonate (Sodium Bicarbonate Tab) 650 mg PO BID [facility] Last Admin: 10/01/17 11:33 Dose: 650 mg Tacrolimus (Prograf Cap) 2.5 mg PO 0600,1800 [facility] Last Admin: 10/01/17 06:25 Dose: 2.5 mg Tizanidine HCl (Zanaflex) 4 mg PO TID [facility] Last Admin: 10/01/17 09:31 Dose: 4 mg Zolpidem Tartrate (Ambien) 5 mg PO HS PRN PRN Reason: Insomnia - Labs Labs: 10/01/17 06:15 10/01/17 06:15
[2017-10-01] MEDS ORDERED: Sodium Chloride 0.9% 1,000 ML IV SCH (14:00)
--- NOTE | 2017-10-01 14:50 | PN ---
DATE: 10/01/2017 SUBJECTIVE: She has had a rough day yesterday. She had apparently too many doses of Dilaudid. She kept on asking for it and then, they found her a little bit unresponsive. They gave her Narcan was in pain, she is in severe pain. I discussed it with my kidney doctor. We are going to put her on prednisone 50 mg today and see if we could stop this pain that is going down her legs. He said that should be fine, even though she is on dialysis. They are very frustrated, they are not happy and they are becoming mean. PHYSICAL EXAMINATION VITAL SIGNS: Has 97.6 temperature, 66 pulse, 136/70 blood pressure, 20 respiratory rate, 95% O2 saturation on room air. HEENT: Head is atraumatic, normocephalic. HEART: Regular rate. LUNGS: Decreased breath sounds, but clear. ABDOMEN: Soft, morbidly obese. EXTREMITIES: No edema. MEDICATIONS: She is on Ambien; Coreg; Dilaudid, I dropped it down to 1 mg from 2 mg because she got unconscious a little bit yesterday; Dulcolax; Ecotrin; Enulose; Lipitor; Pepcid; Percocet; promethazine; Prograf; Prozac; Zanaflex; Zovirax and I bumped up her prednisone to 50 mg for today, we will see how she does. LABORATORY DATA: She has an 8.3 white count, 9.5 hemoglobin, 29.7 hematocrit with platelets. Sodium 140, potassium is 5.2, BUN 71, creatinine is 2.6, glucose of 152, bili is 0.4, AST is 23, ALT is 32, alkaline phosphatase 61, and urine is clear . Micro, there is no growth. She is being seen by Renal, Ortho. I am trying to get her out of bed to chair. I am trying to get physical therapy to move her. She stays in bed, in pain, and hopefully, the prednisone will help her. Mike Olguin DO MTDD
[2017-10-02] MEDS: Oxycodone/Acetaminophen 5/325 mg Tab PO PRN ×3 (05:28→21:15)
[2017-10-02] MEDS: Sodium Chloride 0.9% 1,000 ML IV SCH (05:32)
[2017-10-02 07:32] LABS: HEMOGLOBIN 9.8 g/dL (12.0-16.0); MEAN CELL VOLUME 96.2 fl (80.0-105.0); MEAN CORPUSCULAR HEMOGLOBIN 31.1 pg (25.0-35.0); MEAN CORPUSCULAR HGB CONC 32.3 g/dl (31.0-37.0); MEAN PLATELET VOLUME 9.5 fl (7.0-11.0); RBC 3.15 10^6/uL (3.5-6.1); RED CELL DISTRIBUTION WIDTH 14.9 % (11.5-14.5); WHITE BLOOD COUNT 10.2 10^3/ul (4.5-11.0)
[2017-10-02 07:59] LABS: ALBUMIN 3.5 g/dL (3.0-4.8); CALCIUM 9.6 mg/dL (8.4-10.5)
--- NOTE | 2017-10-02 12:40 | PN ---
DATE: 10/02/2017 SUBJECTIVE: I saw her resting comfortably in bed. She slept okay. She is now on 15 mg of prednisone. I do think it is starting to make a little bit of a difference with the pain. I am hoping that she could do more physical therapy today. I am trying to get her back so can go to her home state on the [facility] and she is to be able to sit in a 6-hour plane ride. MEDICATIONS: She is on Ambien, Coreg, Dilaudid, Dulcolax, Ecotrin, Enulose, Lipitor, Pepcid, Percocet, Phenergan, prednisone up to 15 mg and do it for 5 days, Prograf, Prozac, sodium bicarb, IV fluids, Zanaflex, Zovirax. PHYSICAL EXAMINATION: VITAL SIGNS: She has a 97.9 temp, 68 pulse, 150/71 blood pressure, 20 respiratory rate, 98% O2 sat. HEENT: Head is atraumatic, normocephalic. HEART: Regular rate. LUNGS: Clear to auscultation. ABDOMEN: Soft, obese. EXTREMITIES: No edema. She walked a little bit yesterday. I believe she is starting to turn the corner. LABORATORY DATA: She has a 10.2 white count, 9.8 hemoglobin, 30.3 hematocrit with a 227 platelets. 140 sodium, potassium 5.2, BUN 71, creatinine 2.6, GFR is 19, sugar is 152, calcium is 9.4, total bili is 0.4, AST is 23, ALT is 32, alk phos 61, total protein 6.4. ASSESSMENT AND PLAN: She is being seen by Renal, Orthopedics. I think the 15 mg of prednisone will help her. She does have end-stage renal disease, anemia, hypertension, obesity and when we get the window of her being able to walk safely and without that much pain, we will discharge her hopefully next day or two. Sandra Conleyd who has intractable back pain and leg pain. Mike Olguin DO
--- NOTE | 2017-10-02 15:25 | CP.PCM.PN ---
Subjective - Date & Time of Evaluation Date of Evaluation: 10/02/17 Time of Evaluation: 15:24 - Subjective Subjective: Nephrology Consultation Note: Assessment: Stable acute back pain with sciatica ESRD s/p DDRT 2014 Hypertensive Chronic Kidney Disease (I12.9) Chronic Kidney Disease (N18.4) Stage 4 with ? mg proteinuria (R80.9) Anemia (D64.9), Hypercalcemia hx of parathyroidectomy for Hyperparathyroidism (E21.1), HTN (I12.9) Obesity, hx of PCKD Plan No acute need for renal replacement therapy at this time. Hypertension control with meds as ordered. Patient not on ACEI/ARB. takes coreg 6.25 bid Monitor Input/Output, daily weights and renal function with basic metabolic panel due to hypercalcemia held calcitriol, lasix for 1 day (resume at d/c). DC IV fluid Immunosuppression; pt takes tacrolimus 2.5 mg bid and prednisone 7.5 mg daily, acyclovir bid; continue with same Resume sodium bicarb tabs As serum bicarbonate level low added lactulose for constipation tacrolimus level in AM Sent No contraindication from renal perspective to use higher doses of steroids. changed to regular diet at pt request Dose meds/antibiotics for reduced GFR. Avoid fleets enema/magnesium based laxatives. 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 Will follow patient with you. Please call if any Qs. d/w team and Dr Yung Tellez Office: [phone] Chief Complaint; back pain HPI: Pt is a 56 F with hx of hypertension (years), PCKD s/p b/l [place] nephrectomy, ESRD s/p LURT 4995-2438 (failed due to antibody rejection) then was on HD and received DDRT Aug 2014 in [place], has baseline cr 1.8-2.5, [place] presented with complaints of acute low back pain and episode of nausea/vomitting today. also reports hx of parathyroidectomy and takes calcitriol for it Denies OTC/herbal meds or NSAIDs No recent iodinated contrast exposure. No obvious episodes of low BP. denies any episodes of rejection or opportunistic infections ROS: Cardiovascular: No chest pain. Pulmonary: No shortness of breath Gastrointestinal: denies abdominal pain no nausea. no vomiting. Genitourinary: No pain or burning while urinating. Denies blood in urine. All other negative except left gluteal/back pain radiating to left thigh. Required Narcan on night of 09/30/17 back pain better Physical Examination: General Appearance: comfortable, in no acute respiratory distress, co-operative . obese Vitals reviewed and noted as below Head; Atraumatic, normocephalic ENT: no ulcers no thrush. Tongue is midline. Oropharynx: no rash or ulcers. EYES: Pupils are equal, round and reactive to light accommodation. Eye muscles and extraocular movement intact. Sclera is anicteric. Neck; supple no lymphadenopathy, no thyromegaly or bruit Lungs: Normal respiratory rate/effort. Breath sounds bilateral equal and clear Heart: Normal rate. s1s2 normal. No rub or gallop. Extremities: no edema. No varicose veins Neurological: Patient is awake alert follows command Skin: Warm and dry. Normal turgor. No rash. Palpitation: Normal elasticity for age Abdomen: Abdomen is soft. Bowel sounds +. There is no abdominal tenderness, no guarding/rigidity no organomegaly Psych: normal insight and normal affect/mood MSK: no joint tenderness or swelling. Digits and nails normal, no deformity : bladder not palpable. s/p allograft in RLQ and LLQ no tenderness Labs/imaging reviewed. Past medical history, past surgical history, family history, social history, allergy reviewed and noted as below Family hx: no hx of CKD. Rest non-contributory sono WNL. urine cx neg Objective - Vital Signs/Intake and Output Vital Signs (last 24 hours): Temp Pulse Resp BP Pulse Ox 97.9 F 60 20 161/86 H 98 10/01/17 14:00 10/02/17 11:07 10/01/17 14:00 10/02/17 11:07 10/01/17 14:00 Intake and Output: 10/02/17 10/02/17 06:59 18:59 Intake Total 720 Balance 720 - Medications Medications: Current Medications Acyclovir (Zovirax) 400 mg PO BID [facility] PRN Reason: Protocol Last Admin: 10/02/17 11:04 Dose: 400 mg Aspirin (Ecotrin) 81 mg PO DAILY [facility] Last Admin: 10/02/17 11:04 Dose: 81 mg Atorvastatin Calcium (Lipitor) 20 mg PO DAILY [facility] Last Admin: 10/02/17 11:05 Dose: 20 mg Bisacodyl (Dulcolax) 10 mg PO HS PRN PRN Reason: Constipation Last Admin: 10/01/17 21:03 Dose: 10 mg Carvedilol (Coreg) 6.25 mg PO BID [facility] Last Admin: 10/02/17 11:07 Dose: 6.25 mg Famotidine (Pepcid) 20 mg PO 2200 [facility] Last Admin: 10/01/17 21:04 Dose: 20 mg Fluoxetine HCl (Prozac) 20 mg PO DAILY [facility] Last Admin: 10/02/17 11:07 Dose: 20 mg Hydromorphone HCl (Dilaudid) 1 mg IVP Q4H PRN PRN Reason: Pain, severe (8-10) Lactulose (Enulose) 10 gm PO BID PRN PRN Reason: Constipation Last Admin: 09/29/17 20:04 Dose: 10 gm Oxycodone/Acetaminophen (Percocet 5/325 Mg Tab) 1 tab PO Q6H PRN PRN Reason: Pain, moderate (4-7) Stop: 10/05/17 11:35 Last Admin: 10/02/17 13:52 Dose: 1 tab Prednisone (Prednisone Tab) 50 mg PO DAILY [facility] Last Admin: 10/02/17 11:04 Dose: 50 mg Promethazine HCl (Phenergan Rectal Supp) 25 mg RC Q6 PRN PRN Reason: Nausea/Vomiting Sodium Bicarbonate (Sodium Bicarbonate Tab) 650 mg PO BID [facility] Last Admin: 10/02/17 11:04 Dose: 650 mg Tacrolimus (Prograf Cap) 2.5 mg PO 0600,1800 [facility] Last Admin: 10/02/17 05:27 Dose: 2.5 mg Tizanidine HCl (Zanaflex) 4 mg PO TID [facility] Last Admin: 10/02/17 11:07 Dose: 4 mg Zolpidem Tartrate (Ambien) 5 mg PO HS PRN PRN Reason: Insomnia - Labs Labs: 10/02/17 07:00 10/02/17 07:00
[2017-10-03] MEDS: Oxycodone/Acetaminophen 5/325 mg Tab PO PRN ×3 (04:03→18:24)
[2017-10-03 12:29] LABS: BASO # 0.01 K/mm3 (0.0-2.0); BASO % 0.1 % (0.0-3.0); GRAN # 10.54 (1.4-6.5); GRAN % 86.5 % (50.0-68.0); HEMOGLOBIN 10.3 g/dL (12.0-16.0); LYMPH # 0.3 (1.2-3.4); LYMPH % 2.7 % (22.0-35.0); MEAN CELL VOLUME 94.3 fl (80.0-105.0); MEAN CORPUSCULAR HEMOGLOBIN 30.9 pg (25.0-35.0); MEAN CORPUSCULAR HGB CONC 32.8 g/dl (31.0-37.0); MEAN PLATELET VOLUME 9.3 fl (7.0-11.0); MONO # 1.3 (0.1-0.6); MONO % 10.7 % (1.0-6.0); PLATELET COUNT 267 10^3/uL (120.0-450.0); RBC 3.33 10^6/uL (3.5-6.1); RED CELL DISTRIBUTION WIDTH 15.1 % (11.5-14.5); WHITE BLOOD COUNT 12.2 10^3/ul (4.5-11.0)
[2017-10-03 12:35] LABS: ALBUMIN 3.4 g/dL (3.0-4.8); CALCIUM 9.7 mg/dL (8.4-10.5)
[2017-10-03 13:23] LABS: ATYPICAL LYMPHOCYTE 2 % (0.0-0.0); BAND 2 % (0-2); HYPOCHROMIA 2+; LYMPHOCYTE 7 % (22.0-35.0); MONOCYTE 5 % (1.0-6.0); NEUTROPHIL 84 % (50.0-70.0); PLATELET ESTIMATE NORMAL (NORMAL); TOXIC GRANULATION 2+
[2017-10-03 13:24] LABS: ROULEAU 2+
--- NOTE | 2017-10-03 14:12 | CP.PCM.PN ---
Subjective - Date & Time of Evaluation Date of Evaluation: 10/03/17 Time of Evaluation: 14:02 - Subjective Subjective: Nephrology Consultation Note: Assessment: Stable acute back pain with sciatica ESRD s/p DDRT 2014 Hypertensive Chronic Kidney Disease (I12.9) Chronic Kidney Disease (N18.4) Stage 4 with ? mg proteinuria (R80.9) Anemia (D64.9), Hypercalcemia hx of parathyroidectomy for Hyperparathyroidism (E21.1), HTN (I12.9) Obesity, hx of PCKD Plan No acute need for renal replacement therapy at this time. Hypertension control with meds as ordered. Patient not on ACEI/ARB. takes coreg 6.25 bid, also added norvasc 5 mg/day Monitor Input/Output, daily weights and renal function with basic metabolic panel calcitriol, lasix: will resume Immunosuppression; pt takes tacrolimus 2.5 mg bid and prednisone 7.5 mg daily, acyclovir bid; last tac level 20 (elevated), will hold tonight dose and start at 2 mg bid tomorrow. repeat trough level in AM Resume sodium bicarb tabs As serum bicarbonate level low added lactulose for constipation No contraindication from renal perspective to use higher doses of steroids. changed to regular diet at pt request Dose meds/antibiotics for reduced GFR. Avoid fleets enema/magnesium based laxatives. 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 Will follow patient with you. Please call if any Qs. 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 also reports hx of parathyroidectomy and takes calcitriol for it Denies OTC/herbal meds or NSAIDs No recent iodinated contrast exposure. No obvious episodes of low BP. denies any episodes of rejection or opportunistic infections ROS: Cardiovascular: No chest pain. Pulmonary: No shortness of breath Gastrointestinal: denies abdominal pain no nausea. no vomiting. Genitourinary: No pain or burning while urinating. Denies blood in urine. All other negative except left gluteal/back pain radiating to left thigh. Required Narcan on night of 09/30/17 back pain fluctuating Physical Examination: General Appearance: comfortable, in no acute respiratory distress, co-operative . obese Vitals reviewed and noted as below Head; Atraumatic, normocephalic ENT: no ulcers no thrush. Tongue is midline. Oropharynx: no rash or ulcers. EYES: Pupils are equal, round and reactive to light accommodation. Eye muscles and extraocular movement intact. Sclera is anicteric. Neck; supple no lymphadenopathy, no thyromegaly or bruit Lungs: Normal respiratory rate/effort. Breath sounds bilateral equal and clear Heart: Normal rate. s1s2 normal. No rub or gallop. Extremities: no edema. No varicose veins Neurological: Patient is awake alert follows command Skin: Warm and dry. Normal turgor. No rash. Palpitation: Normal elasticity for age Abdomen: Abdomen is soft. Bowel sounds +. There is no abdominal tenderness, no guarding/rigidity no organomegaly Psych: normal insight and normal affect/mood MSK: no joint tenderness or swelling. Digits and nails normal, no deformity : bladder not palpable. s/p allograft in RLQ and LLQ no tenderness Labs/imaging reviewed. Past medical history, past surgical history, family history, social history, allergy reviewed and noted as below Family hx: no hx of CKD. Rest non-contributory sono WNL. urine cx neg Objective - Vital Signs/Intake and Output Vital Signs (last 24 hours): Temp Pulse Resp BP Pulse Ox 98.1 F 58 L 20 167/84 H 96 10/03/17 07:36 10/03/17 07:36 10/03/17 07:36 10/03/17 07:36 10/03/17 07:36 Intake and Output: 10/03/17 10/03/17 06:59 18:59 Intake Total 720 Balance 720 - Medications Medications: Current Medications Acyclovir (Zovirax) 400 mg PO BID [facility] PRN Reason: Protocol Last Admin: 10/03/17 10:55 Dose: 400 mg Amlodipine Besylate (Norvasc) 5 mg PO DAILY [facility] Aspirin (Ecotrin) 81 mg PO DAILY [facility] Last Admin: 10/03/17 10:58 Dose: 81 mg Atorvastatin Calcium (Lipitor) 20 mg PO DAILY [facility] Last Admin: 10/03/17 10:58 Dose: 20 mg Bisacodyl (Dulcolax) 10 mg PO HS PRN PRN Reason: Constipation Last Admin: 10/01/17 21:03 Dose: 10 mg Carvedilol (Coreg) 6.25 mg PO BID [facility] Last Admin: 10/03/17 10:57 Dose: Not Given Famotidine (Pepcid) 20 mg PO 2200 [facility] Last Admin: 10/02/17 21:15 Dose: 20 mg Fluoxetine HCl (Prozac) 20 mg PO DAILY [facility] Last Admin: 10/03/17 10:58 Dose: 20 mg Hydromorphone HCl (Dilaudid) 1 mg IVP Q4H PRN PRN Reason: Pain, severe (8-10) Lactulose (Enulose) 10 gm PO BID PRN PRN Reason: Constipation Last Admin: 09/29/17 20:04 Dose: 10 gm Oxycodone/Acetaminophen (Percocet 5/325 Mg Tab) 1 tab PO Q6H PRN PRN Reason: Pain, moderate (4-7) Stop: 10/05/17 11:35 Last Admin: 10/03/17 11:03 Dose: 1 tab Prednisone (Prednisone Tab) 50 mg PO DAILY [facility] Last Admin: 10/03/17 10:56 Dose: 50 mg Promethazine HCl (Phenergan Rectal Supp) 25 mg RC Q6 PRN PRN Reason: Nausea/Vomiting Sodium Bicarbonate (Sodium Bicarbonate Tab) 650 mg PO BID [facility] Last Admin: 10/03/17 10:55 Dose: 650 mg Tacrolimus (Prograf Cap) 2 mg PO 0600,1800 [facility] Tizanidine HCl (Zanaflex) 4 mg PO TID [facility] Last Admin: 10/03/17 10:56 Dose: 4 mg Zolpidem Tartrate (Ambien) 5 mg PO HS PRN PRN Reason: Insomnia - Labs Labs: 10/03/17 12:20 10/03/17 12:20
--- NOTE | 2017-10-03 14:30 | PN ---
DATE: 10/03/2017 UPDATED REPORT LOCATION: In room 568, bed 2. SUBJECTIVE: She was admitted for intractable back pain first day she feels much better and she is moving around better and understands that her back pain will get better eventually and she does not need surgical interventions. Hopefully, she will be able to go home soon and to be reevaluated in her hometown, [place]. Taj Marcos DO
--- NOTE | 2017-10-03 16:13 | PN ---
DATE: 10/03/2017 SUBJECTIVE: This is the first day I think she is really turning the corner and starting to feel better. She is able to get up a little bit. She wants to walk. She walks better with a walker and the pain is down to a 6. It was a 10 up until last night. I think the prednisone 15 mg a day is making a big difference. She is on Ambien, Coreg, Dilaudid which she has not taken this much, Dulcolax, Ecotrin, Enulose, Lipitor, Pepcid, Percocet, Phenergan, prednisone, Prograf, Prozac, sodium bicarbonate, Zanaflex, Zovirax. PHYSICAL EXAMINATION: VITAL SIGNS: She has a 98.1 temp, 58 pulse, 167/84 blood pressure, 20 respiratory rate, 96% O2 sat on room air. If the blood pressure stays high on the prednisone, we might have to add a little Norvasc. HEENT: Head is atraumatic, normocephalic. HEART: Regular rate. LUNGS: Decreased breath sounds, but clear. ABDOMEN: Soft, morbidly obese, nontender. EXTREMITIES: She moves the legs better. Less pain. I am able to touch the ankles without any pain. LABORATORY DATA: She has a 10.2 white count, 9.8 hemoglobin, 227 platelets. 143 sodium, potassium 4.7, BUN 71, creatinine 2.2, GFR is 23, sugar is 166, calcium is 9.6, total bili is 0.3, AST is 22, ALT is 26, alk phos 64. ASSESSMENT AND PLAN: There is a plan for her to be discharged from the hospital tomorrow. She will spend the night in a hotel and leave Saturday morning early to go back to [place] that is the tentative plan. Hopefully, it will continue to work. I would like the prescriptions tomorrow. We will see if Renal wants to do anything about the blood pressure. Mike Olguin DO
[2017-10-04] MEDS: Oxycodone/Acetaminophen 5/325 mg Tab PO PRN ×2 (02:34→10:07)
[2017-10-04 06:35] VITALS: BP 185/97
[2017-10-04 07:19] LABS: CALCIUM 10.1 mg/dL (8.4-10.5)
[2017-10-04 08:09] VITALS: PULSE 57; RESP 20; TEMP 98.2; O2SAT 97
--- NOTE | 2017-10-04 11:26 | CP.PCM.PN ---
Subjective - Date & Time of Evaluation Date of Evaluation: 10/04/17 Time of Evaluation: 11:24 - Subjective Subjective: Nephrology Consultation Note: Assessment: Stable acute back pain with sciatica ESRD s/p DDRT 2014 Hypertensive Chronic Kidney Disease (I12.9) Chronic Kidney Disease (N18.4) Stage 4 with ? mg proteinuria (R80.9) Anemia (D64.9), Hypercalcemia hx of parathyroidectomy for Hyperparathyroidism (E21.1), HTN (I12.9) Obesity, hx of PCKD Plan No acute need for renal replacement therapy at this time. Hypertension control with meds as ordered. Patient not on ACEI/ARB. takes coreg 6.25 bid, also added prn hdyralazine Monitor Input/Output, daily weights and renal function with basic metabolic panel calcitriol, lasix: will resume Immunosuppression; pt takes tacrolimus 2.5 mg bid and prednisone 7.5 mg daily, acyclovir bid; last tac level 20 (elevated), held 1 dose and started at 2 mg bid today. repeat trough level in AM sent 10/04 Resume sodium bicarb tabs As serum bicarbonate level low added lactulose for constipation No contraindication from renal perspective to use higher doses of steroids. changed to regular diet at pt request Dose meds/antibiotics for reduced GFR. Avoid fleets enema/magnesium based laxatives. 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 Will follow patient with you. Please call if any Qs. d/w team and Dr Yung Tellez Office: [phone] Chief Complaint; back pain HPI: Pt is a 56 F with hx of hypertension (years), PCKD s/p b/l [place] nephrectomy, ESRD s/p LURT [id number] (failed due to antibody rejection) then was on HD and received DDRT Aug 2014 in [place], has baseline cr 1.8-2.5, here on cruise presented with complaints of acute low back pain and episode of nausea/vomitting today. also reports hx of parathyroidectomy and takes calcitriol for it Denies OTC/herbal meds or NSAIDs No recent iodinated contrast exposure. No obvious episodes of low BP. denies any episodes of rejection or opportunistic infections ROS: Cardiovascular: No chest pain. Pulmonary: No shortness of breath Gastrointestinal: denies abdominal pain no nausea. no vomiting. Genitourinary: No pain or burning while urinating. Denies blood in urine. All other negative except left gluteal/back pain radiating to left thigh. Required Narcan on night of 09/30/17 back pain fluctuating Physical Examination: General Appearance: comfortable, in no acute respiratory distress, co-operative . obese Vitals reviewed and noted as below Head; Atraumatic, normocephalic ENT: no ulcers no thrush. Tongue is midline. Oropharynx: no rash or ulcers. EYES: Pupils are equal, round and reactive to light accommodation. Eye muscles and extraocular movement intact. Sclera is anicteric. Neck; supple no lymphadenopathy, no thyromegaly or bruit Lungs: Normal respiratory rate/effort. Breath sounds bilateral equal and clear Heart: Normal rate. s1s2 normal. No rub or gallop. Extremities: no edema. No varicose veins Neurological: Patient is awake alert follows command Skin: Warm and dry. Normal turgor. No rash. Palpitation: Normal elasticity for age Abdomen: Abdomen is soft. Bowel sounds +. There is no abdominal tenderness, no guarding/rigidity no organomegaly Psych: normal insight and normal affect/mood MSK: no joint tenderness or swelling. Digits and nails normal, no deformity : bladder not palpable. s/p allograft in RLQ and LLQ no tenderness Labs/imaging reviewed. Past medical history, past surgical history, family history, social history, allergy reviewed and noted as below Family hx: no hx of CKD. Rest non-contributory sono WNL. urine cx neg Objective - Vital Signs/Intake and Output Vital Signs (last 24 hours): Temp Pulse Resp BP Pulse Ox 98.2 F 57 L 20 185/97 H 97 10/04/17 08:08 10/04/17 08:08 10/04/17 08:08 10/04/17 08:08 10/04/17 08:08 Intake and Output: 10/04/17 10/04/17 06:59 18:59 Intake Total 720 Balance 720 - Medications Medications: Current Medications Acyclovir (Zovirax) 400 mg PO BID [facility] PRN Reason: Protocol Last Admin: 10/03/17 18:20 Dose: 400 mg Aspirin (Ecotrin) 81 mg PO DAILY [facility] Last Admin: 10/03/17 10:58 Dose: 81 mg Atorvastatin Calcium (Lipitor) 20 mg PO DAILY [facility] Last Admin: 10/03/17 10:58 Dose: 20 mg Bisacodyl (Dulcolax) 10 mg PO HS PRN PRN Reason: Constipation Last Admin: 10/01/17 21:03 Dose: 10 mg Calcitriol (Rocaltrol) 0.5 mcg PO DAILY [facility] Carvedilol (Coreg) 6.25 mg PO BID [facility] Last Admin: 10/03/17 18:24 Dose: 6.25 mg Famotidine (Pepcid) 20 mg PO 2200 [facility] Last Admin: 10/03/17 21:06 Dose: 20 mg Fluoxetine HCl (Prozac) 20 mg PO DAILY [facility] Last Admin: 10/03/17 10:58 Dose: 20 mg Furosemide (Lasix) 20 mg PO DAILY [facility] Hydralazine HCl (Apresoline) 25 mg PO Q4 PRN PRN Reason: Other Last Admin: 10/04/17 06:34 Dose: 25 mg Hydromorphone HCl (Dilaudid) 1 mg IVP Q4H PRN PRN Reason: Pain, severe (8-10) Lactulose (Enulose) 10 gm PO BID PRN PRN Reason: Constipation Last Admin: 10/03/17 15:03 Dose: 10 gm Oxycodone/Acetaminophen (Percocet 5/325 Mg Tab) 1 tab PO Q6H PRN PRN Reason: Pain, moderate (4-7) Stop: 10/05/17 11:35 Last Admin: 10/04/17 10:07 Dose: 1 tab Prednisone (Prednisone Tab) 50 mg PO DAILY [facility] Last Admin: 10/03/17 10:56 Dose: 50 mg Promethazine HCl (Phenergan Rectal Supp) 25 mg RC Q6 PRN PRN Reason: Nausea/Vomiting Sodium Bicarbonate (Sodium Bicarbonate Tab) 650 mg PO BID [facility] Last Admin: 10/03/17 18:21 Dose: 650 mg Tacrolimus (Prograf Cap) 2 mg PO 0600,1800 [facility] Last Admin: 10/04/17 06:18 Dose: 2 mg Tizanidine HCl (Zanaflex) 4 mg PO TID [facility] Last Admin: 10/03/17 18:21 Dose: 4 mg Zolpidem Tartrate (Ambien) 5 mg PO HS PRN PRN Reason: Insomnia - Labs Labs: 10/03/17 12:20 10/04/17 06:15
--- NOTE | 2017-10-05 00:07 | DS ---
HISTORY OF PRESENT ILLNESS: [place] is from the cruise ship. She has excruciating back pain, intractable back pain with sciatica; and now she has improved that she is able to be discharged. She will go home to [place], they have a flight tomorrow. She was here with acute back pain with sciatica, severe intractable back pain, end stage renal disease, hypertensive chronic kidney disease, chronic kidney disease stage IV, anemia. She also had a kidney resection in the past. But she is doing better now. She is walking little bit better. She is very uncomfortable, but she can fly. She will be on her medications, which are Ambien, Apresoline, Coreg, Dulcolax, Ecotrin, Enulose, Lasix, Lipitor, Pepcid. I will give her Percocet enough for four days until she can see her primary care doctor in [place]. Phenergan, prednisone 50 daily until she can see her doctors out there, Prograf, Prozac, Glucotrol, sodium bicarbonate, and Zanaflex. Hopefully she will do well, she will have a peaceful flight. Her last BUN and creatinine are 65 and 2.0 with 31 GFR. Mike Olguin DO
== END 2017-10-04 16:44 | disposition home or self-care (01) | DRG 552 ==
LOC: ED 07:31 → ERH 12:48 → 5RSO 14:31 → 5RNO 15:44 → OBSVTOIN 09-29 10:23
PROVIDERS: ADMIT Family Medicine; ATTEND Family Medicine
DX: M54.32 Sciatica, left side (principal); N18.4 Chronic kidney disease, stage 4 (severe); Q61.3 Polycystic kidney, unspecified; E83.52 Hypercalcemia; Z94.0 Kidney transplant status; M51.17 Intervertebral disc disorders with radiculopathy, lumbosacral region; E78.00 Pure hypercholesterolemia, unspecified; I12.9 Hypertensive chronic kidney disease with stage 1 through stage 4 chronic kidney disease, or unspecified chronic kidney disease; M62.838 Other muscle spasm; D64.9 Anemia, unspecified; E21.3 Hyperparathyroidism, unspecified; R80.9 Proteinuria, unspecified; E66.9 Obesity, unspecified; Z68.36 Body mass index [BMI] 36.0-36.9, adult